=== PATIENT | male | born 2000 | race African-American/Black ===

== ENCOUNTER 2023-11-05 16:45 | Emergency (ER) | payer OTHER, SELFPAY ==
[2023-11-05 16:55] VITALS: BP 173/94; PULSE 90; RESP 16; TEMP 36.6; O2SAT 100
--- NOTE | 2023-11-05 17:10 | ED.GENADULT ---
HPI - General Adult General Chief complaint: Skin/Abscess/Foreign Body Stated complaint: Spider Bite Time Seen by Provider: 11/05/23 17:00 History of Present Illness HPI narrative: Patient is a 23-year-old male who presents to the emergency department this evening complaining of an insect bite. Patient states at that sometime this afternoon he noticed some redness and pain to his medial biceps region. Patient states that when he woke up this morning he did notice some pain in that area but thought it was some sort, however, throughout the day he noticed the area is a little bit red and was concerned that he got bit by pressure on it to make sure that is not some formal was assessed. He is currently denying any systemic symptoms including any nausea, vomiting, any fevers, chills, denies any itching, any numbness or tingling, chest pain or shortness of breath. No additional symptoms or concerns at this time. Review of Systems Review of Systems: All systems are reviewed and are negative unless stated otherwise in the HPI. Exam Narrative: General: Alert, awake, afebrile, in no acute distress. HEENT: PERRL, no rhinorrhea, no post nasal drip, oropharynx clear. Cardiovascular: Regular rate and rhythm, no murmurs, rubs or gallops, no peripheral edema. Respiratory: Clear to auscultation bilaterally, no tachypnea, no wheezing, no rhonchi, no rubs, no respiratory distress. Abdomen: Soft, nontender, nondistended, no rebound, no guarding, no peritoneal signs. Musculoskeletal: No joint swelling or deformity, normal muscle tone. Skin: Mild erythema to the posterior medial aspect of the right upper extremity overlying the mid biceps/triceps region, no ecchymosis or noticeable swelling. Neurological: Alert and oriented to person, place, and time. Follows all commands. No focal deficits, speech is clear and fluent. Course Vital Signs Vital signs: Vital Signs Temperature 97.8 F 11/05/23 16:55 Pulse Rate 90 11/05/23 16:55 Respiratory Rate 16 11/05/23 16:55 Blood Pressure 173/94 H 11/05/23 16:55 Pulse Oximetry 100 11/05/23 16:55 Oxygen Delivery Room Air 11/05/23 16:55 Temperature 97.8 F 11/05/23 16:55 Pulse Rate 90 11/05/23 16:55 Respiratory Rate 16 11/05/23 16:55 Blood Pressure 173/94 H 11/05/23 16:55 Pulse Oximetry 100 11/05/23 16:55 Oxygen Delivery Room Air 11/05/23 16:55 Medical Decision Making MDM Narrative Medical decision making narrative: The patient was evaluated by myself in the emergency department. History is obtained from patient who is an independent historian and physical exam was performed. External medical records were reviewed at this time. Patient was reassured that his insect bite does not need any further intervention. He was instructed to keep a close eye on his and provided with strict return precautions and instructed to return to the ED if any new or worsening symptoms develop. Differential diagnosis considerations include insect bite, allergic reaction versus cellulitis. Comorbidities impacting this visit include none. I have evaluated and discussed social determinants of health with the patient that could potentially impact subsequent diagnosis and treatment plans. On repeat assessment of the patient, reevaluation revealed that the patient is doing well and is in no acute distress. Patient symptoms have remained stable since he arrived to our emergency department. Repeat vital signs were all reviewed and noted to be stable. Differential diagnosis and treatment plan were discussed with the patient at bedside. Patient agrees with discussion and after shared medical decision making agrees with discharge. All questions were answered to the patient's satisfaction. Patient will follow up with his PCP in 3-5 days. Patient was provided with strict return precautions and instructed to return to the emergency department if any new or worsening symptoms develop. The patient was dis
== END 2023-11-05 17:46 | disposition home or self-care (01) ==
LOC: ANHED 17:20
PROVIDERS: Emergency Provider Emergency Medicine
DX: S40.861A Insect bite (nonvenomous) of right upper arm, initial encounter (principal); W57.XXXA Bitten or stung by nonvenomous insect and other nonvenomous arthropods, initial encounter
CPT/HCPCS: 99281